=== PATIENT | male | born 1950 | race Caucasian/White ===

== ENCOUNTER 2021-11-26 11:37 | Emergency (ER) | payer MEDICARE, OTHER, SELFPAY ==
[2021-11-26 12:01] VITALS: BP 158/71; PULSE 68; RESP 18; TEMP 36.8; O2SAT 97
--- NOTE | 2021-11-26 12:45 | ED.GENADUL_ITS ---
Discharge Plan Disposition Patient Disposition: HOME Condition: Stable Discharge Details Clinical Impression: Viral URI with cough Primary Care Provider: Maye,Local ED Provider: Millie Jones Home Meds and New Rx's Prescriptions: Continued lamotrigine [Lamictal] 200 mg Tablet 200 mg PO DAILY diltiazem HCl 240 mg Capsule,Extended Release 24 Hr 240 mg PO DAILY losartan 25 mg Tablet 25 mg PO DAILY hydrochlorothiazide 12.5 mg Capsule 12.5 mg PO DAILY gabapentin 300 mg Capsule 300 mg PO DAILY furosemide 20 mg Tablet 20 mg PO DAILY escitalopram oxalate [Lexapro] 10 mg Tablet 20 mg PO DAILY quetiapine [Seroquel] 50 mg Tablet 50 mg PO DAILY Xarelto 20 mg Tablet 20 mg PO DAILY Discharge Instructions Instructions: Upper Respiratory Infection (ED), Acute Cough (ED), COVID-19 (Coronavirus Disease 2019) (ED) Additional Instructions: Your symptoms are likely due to COVID-19 as you had a recent positive exposure. You were given a monoclonal antibody infusion here in the emergency department due to the likelihood that you have COVID-19 and to reduce your risk of progression to severe illness associated with COVID-19 in association with your other chronic medical problems. Drink plenty of fluids and get plenty of rest. You can try [id number] Coricidin HBP for your cough which may be more safe in patients with high blood pressure. You have been placed on care management's list to arrange for a follow-up appointment with a primary care doctor to establish care and for re-evaluation. Return immediately to the emergency department if you develop any worsening or new concerning symptoms such as persistent fevers, difficulty breathing or any other concerns. Stand Alone Forms: PENDING COVID-19 TESTING Discharge Data Discharge Date/Time-TO BE ENTERED AT DEPARTURE: 11/26/21 16:21 Discharge Physician: Millie Jones Medical Decision Making 71-year-old male with a history of atrial fibrillation on Xarelto, hypertension, bipolar disorder presents with 4 days of headache, nasal congestion, cough and fatigue that he reports is now improving. Patient is here with his who is also a patient. He states they drove here from [place] 4 days ago and have moved here. He states his symptoms are improving and he is mainly worried about his health and at this time. He has received a total of 4 COVID vaccines. He denies any known exposure to COVID. He appears comfortable and nontoxic. He is afebrile. His oxygen saturation is 99% on room air on my assessment. He has wheezing in the right lung base and offered a chest x-ray but patient declined. He appears to be breathing comfortably and denies any shortness of breath. Otherwise normal ENT exam. No meningeal signs. A send out COVID test was obtained. Patient states he does not want any imaging or additional testing and does not want antiviral medication. Patient placed on care management list to arrange for a follow-up appointment with the primary care doctor to establish care for reevaluation. Usual and customary return precautions given prior to discharge. Shortly after discharge, patient's who is also a patient in the emergency department tested positive for COVID on a rapid test. This was discussed with patient with his consent and patient would like antiviral medication as he likely has Covid. Per discussion with pharmacy, due to his medication interactions, Paxlovid would not be appropriate but they are recommending monoclonal antibody infusion which patient is agreeable to and tolerated well. Medical Records Medical records reviewed: Yes I reviewed the patient's medical records. HPI General Mode of arrival: ambulatory . Date/Time Provider Initiated Documentation: 11/26/21 12:05 . Limitations to Documentation: no limitations . Information obtained by: patient . HPI Narrative: Patient is a 71-year-old male with a history of atrial fibrillation on Xarelto, hypertension and bipolar disorder who presents with 4 days of nasal congestion, runny nose, cough, headache and fatigue. Patient states he has received a total of 4 doses of the COVID-vaccine. He states he started traveling here 4 days ago from [place] and is moving here permanently. He is unaware of any known exposure to coronavirus but has been traveling. He denies any known fever, chest pain, sore throat, shortness of breath, vomiting or diarrhea. Related Data Home Medications Medication Instructions Recorded Confirmed diltiazem HCl 240 mg capsule,24 240 mg PO DAILY 11/26/21 11/26/21 hr,extended release escitalopram oxalate 10 mg tablet 20 mg PO DAILY 11/26/21 11/26/21 (Lexapro) furosemide 20 mg tablet 20 mg PO DAILY 11/26/21 11/26/21 gabapentin 300 mg capsule 300 mg PO DAILY 11/26/21 11/26/21 hydrochlorothiazide 12.5 mg capsule 12.5 mg PO DAILY 11/26/21 11/26/21 lamotrigine 200 mg tablet 200 mg PO DAILY 11/26/21 11/26/21 (Lamictal) losartan 25 mg tablet 25 mg PO DAILY 11/26/21 11/26/21 quetiapine 50 mg tablet (Seroquel) 50 mg PO DAILY 11/26/21 11/26/21 rivaroxaban 20 mg tablet (Xarelto) 20 mg PO DAILY 11/26/21 11/26/21 Allergies Allergy/AdvReac Type Severity Reaction Status Date / Time No Known Allergies Allergy Unverified 11/26/21 12:04 General Stated Complaint: RespSymp ISAAC: 4 Review of Systems All systems reviewed & are unremarkable except as noted in HPI and below Constitutional Constitutional: Denies chills, Denies excessive sweating, Denies fatigue, Denies fever(s), Denies weakness and Denies weight loss Eyes Eyes: Reports system reviewed and no additional complaints, except as documented and Denies blurry vision ENT Ears, Nose, Mouth, and Throat: Denies vertigo, Denies dizziness, Denies otalgia, Denies nasal congestion, Denies sore throat and Denies throat swelling Cardiovascular Cardiovascular: Denies chest pain, Denies syncope, Denies rapid heart rate and Denies dyspnea Respiratory Respiratory: Denies chest congestion, Denies cough, Denies pain on inspiration and Denies dyspnea Gastrointestinal Gastrointestinal: Denies abdominal pain, Denies diarrhea and Denies vomiting Genitourinary Genitourinary: Denies hematuria, Denies dysuria and Denies flank pain Musculoskeletal Musculoskeletal: Denies back pain and Denies joint swelling Integumentary/Breasts Skin/Breast: Denies lesions and Denies rash Neurologic Neurologic: Denies behavioral changes, Denies confusion, Denies vertigo, Denies dizziness, Denies syncope, Denies localized weakness and Denies weakness Psychiatric Psychiatric: Denies behavioral changes, Denies confusion and Denies depression Endocrine Endocrine: Denies excessive sweating and Denies fatigue Hematologic/Lymphatic Hematologic/Lymphatic: Denies easy bruising and Denies lymphadenopathy Allergic/Immunologic Allergic/Immunologic: Denies throat swelling PFSH All Active Problems (Updated 11/26/21 @ 12:48 by Millie Jones DO) Viral URI with cough (Acute) Medical History (Updated 11/26/21 @ 12:48 by Millie Jones DO) Atrial fibrillation Bipolar affective disorder HTN (hypertension) Surgical History (Updated 11/26/21 @ 12:47 by Millie Jones DO) History of cervical spinal surgery History of knee replacement History of lumbar surgery Social History Smoking/Tobacco Use Status: Never Smoking risk assessment performed?: Yes Alcohol Intake: current Alcohol Intake frequency: holidays/special occasions only Drug use: Never Substance use type: does not use Do you feel safe at home: Yes Do you feel safe in your relationship?: Yes Exam Const General: cooperative Orientation: alert, awake and oriented x3 HENMT Head: normal to inspection Ears: hearing grossly normal bilaterally, external ears normal and TM's normal bilaterally General nose exam: external nose normal Face and sinus: normal facial exam Mouth: oral mucosae normal Teeth and gingiva: dentition normal Throat: posterior oropharynx normal Eyes General: appearance normal, both eyes and all related structures Eyelids: eyelids normal Pupils: PERRL EOM: EOM intact bilaterally Neck Neck: normal visual inspection Lymphatic: no lymphadenopathy noted Chest Chest: normal inspection of the chest Resp Effort & Inspection: normal respiratory effort and able to speak in complete sentences Auscultation: clear to auscultation bilaterally Cardio Rate: regular rate Rhythm: regular rhythm GI Inspection: normal to inspection Palpation: soft, not firm, no guarding, no hepatosplenomegaly, no masses and n ontender Auscultation: normal bowel sounds Back/Spine/Pelvis Back: no CVA tenderness Skin General skin exam: no rashes or lesions noted Neuro General: patient alert and patient awake Cognition: normal cognition Speech: speech normal Gait: normal gait Motor: muscle tone normal throughout Sensory Exam: no sensory deficits noted Extrem General: normal to inspection, full ROM and capillary refill normal Psych Appearance: grossly normal Mental Status: mental status grossly normal Speech and Movement: speech and movement normal Affect: normal affect Thought Process: normal Course Vital Signs Vital signs: Vital Signs Temperature 98.2 F 11/26/21 12:01 Pulse 68 11/26/21 12:01 Respiratory Rate 18 11/26/21 12:01 Blood Pressure 158/71 H 11/26/21 12:01 Pulse Oximetry 97 11/26/21 12:01 Temperature 98.2 F 11/26/21 12:01 Temperature Source Temporal Artery Scan 11/26/21 12:01 Pulse 68 11/26/21 12:01 Respiratory Rate 18 11/26/21 12:01 Respiratory Effort Non-Labored 11/26/21 12:11 Blood Pressure 158/71 H 11/26/21 12:01 Blood Pressure Position Sitting 11/26/21 12:01 Pulse Oximetry 97 11/26/21 12:01 Oxygen Delivery Method Room Air 11/26/21 12:01 Oxygen Flow Rate 0 11/26/21 12:01
--- NOTE | 2021-11-26 12:57 | NUR.NOTE ---
Nursing Note: PT INFO GIVEN TO CARE MANAGEMENT TO ESTABLISH CARE NEXT WEEK. REGAN, ED
[2021-11-26 15:10] VITALS: BP 156/67; PULSE 53; RESP 16; TEMP 36.7; O2SAT 98
[2021-11-26] MEDS: Normal Saline Flush 10 ML SYR IVP (15:11)
[2021-11-26 16:21] VITALS: BP 156/67; PULSE 53; RESP 16; TEMP 36.7; O2SAT 98
--- NOTE | 2021-11-27 10:36 | PDOC.ERCMACT ---
- If Service Date Differs Date of service: 11/27/21 Time of Service: 10:36 Care Management Activity Note Lamont is seen in the ED for a viral URI with cough. At the request of ED provider, TELLY coordinates a referral to SKY Osei, of [facility], on-call provider, to assist Lamont in obtaining a follow up appointment and in establishing care with a local PCP. Lamont has Medicare for health insurance.
[2021-11-27 16:53] LABS: COVID-19 RT-PCR UVMMC Result Positive (Negative)
== END 2021-11-26 16:21 | disposition home or self-care (01) ==
PROVIDERS: Emergency Provider Physician Assistant
DX: U07.1 COVID-19 (principal)
CPT/HCPCS: 80048; 96374; 99283; 99284; Q0222; U0003

== ENCOUNTER 2022-02-26 18:06 | Outpatient (REF) | payer MEDICARE, OTHER, SELFPAY ==
[2022-02-26 16:53] LABS: Calculated LDL 125 mg/dL (<100); Cholesterol 179 mg/dL (<200); HDL Cholesterol 39 mg/dL (40-60); Triglyceride 76 mg/dL (<150)
== END 2022-02-26 18:07 | disposition home or self-care (01) ==
LOC: NCHCN 18:06
PROVIDERS: Visit Provider Nurse Practitioner Family
DX: E78.5 Hyperlipidemia, unspecified (principal)
CPT/HCPCS: 80061

== ENCOUNTER 2022-03-29 08:49 | Outpatient (CLI) | payer MEDICARE, OTHER, SELFPAY ==
--- NOTE | 2022-03-29 08:45 | RT.EKG_ITS ---
APPROVED REPORT Exam: Resting ECG Reason for Exam: fib Patient Location: O HR:55 bpm ECG Measurements Heart Rate 55 AXIS AK 241 P 0 QRSd 115 QRS -33 QT 463 T 8 QTc 443 Conclusion Sinus rhythm...normal P axis, V-rate 50- 99 Prolonged AK interval...AK >220, V-rate 50- 90
== END 2022-03-29 08:50 | disposition home or self-care (01) ==
LOC: DI.CARD 08:50
PROVIDERS: Visit Provider Internal Medicine Cardiovascular Disease
DX: I48.91 Unspecified atrial fibrillation (principal)
CPT/HCPCS: 93010

== ENCOUNTER → 2022-03-29 11:06 | Outpatient (BNVA) | payer MEDICARE, BC, OTHER, SELFPAY | PROVIDERS: Visit Provider Internal Medicine Cardiovascular Disease | DX: I48.0 Paroxysmal atrial fibrillation (principal); E78.5 Hyperlipidemia, unspecified; I10 Essential (primary) hypertension | CPT/HCPCS: 93005; 99203; 99214 ==

== ENCOUNTER 2022-08-02 01:19 | Outpatient (CLI) | payer MEDICARE, OTHER, SELFPAY ==
--- NOTE | 2022-08-02 09:00 | ETT_ITS ---
APPROVED REPORT Exam: Exercise Treadmill Patient Location: Out-Patient Room/Bed: Stress Nurse: Ileana Bartlett RN Ordering Provider:RANDI CHRISTINE, Contact Number: [phone] BMI: 33.96 Baseline Rhythm: Sinus Rhythm Comment: first degree, SR Indications: afib, evaluation for ischemia and QRS prolongation Medical History Medical History: afib, bipolar affective disorder, HTN, hx cervical surgery, hx knee replacement, hx lumbar surgery, hx cataract surgery Cardiac Medications: lexapro, flecainide, diltiazem HCL, rosuvastatin, furosemide, losartan, hydrochl orathiazide, xerelto, seroquel, lamictal Allergies: NKA Cardiac Risk Factors: HTN, HLD, overweight Previous Cardiac Procedures: cardioversion x4 (2 in 2016, 2 in 2018) Pretest Chest Pain Characteristics: none Exercise History: Physically active Physical Disabilities: none Lung Sounds: Clear to auscultation Heart Sounds: + murmur Stress Test Details Test: Exercise stress testing was performed using a Bennie protocol. Rest Stress HR Resting HR Supine: 55 bpm Max Heart Rate (APMHR): 150 bpm Resting HR Standin bpm Target HR (85% APMHR): 128 bpm Max HR Achieved: 107 bpm % of APMHR: 71 Recovery HR: 68 bpm HR response to stress: Blunted HR response to stress BP Resting BP Supine: 146/68 mmHg Resting BP Standin/66 mmHg Max BP: 200/88 mmHg Recovery BP: 150/60 mmHg BP response to stress: Normal blood pressure response to stress. ECG Resting ECG: Sinus Rhythm Ectopy: None Stress ECG: Sinus Tachycardia ST Change: None Recovery ECG: Sinus Rhythm Recovery ST Change: None Recovery Arrhythmia: rare PVC Comment: T wave inversion in aVL and V2 Clinical Reason for Termination: Fatigue Stress Symptoms: None Exercise duration: 9 min09 sec Highest Stage Reached: Stage 4: 4.2 mph at 16% grade. Exercise capacity: 10.39 METs Angina Score: None Thornton Treadmill Score: 8.2 Rate Pressure Product: 09603 Stress ECG Conclusion 1. Resting electrocardiogram showed first-degree AV block and poor R wave progression 2. Patient exercised on the Bennie protocol completed a workload of 10.39 METS 3. Limited heart rate response to exercise. The patient achieved 71% of predicted heart rate for age 5. At that workload and heart rate there was no electrocardiographic evidence of myocardial ischemia though the test was deemed nondiagnostic as 85% of predicted heart rate was not achieved 5. Rare PVCs were seen Thornton Treadmill Score is 8.2 which is Low risk. Stress Test Summary STAGE Time (mins) Speed (mph) Grade (%) HR BP SpO2 SYMPTOMS METS Supine 55 146/68 Standing 59 154/66 1 3 1.7 10 89 160/82 4.5 2 6 2.5 12 91 170/84 7 3 9 3.4 14 105 10 1 min recovery 97 200/88 3 min recovery 78 178/68 6 min recovery 68 150/60
== END 2022-08-02 01:39 ==
PROVIDERS: Visit Provider Internal Medicine Cardiovascular Disease
DX: I48.91 Unspecified atrial fibrillation (principal)
CPT/HCPCS: 93016; 93018; 93017

== ENCOUNTER 2022-08-27 17:36 | Outpatient (REF) | payer MEDICARE, OTHER, SELFPAY ==
[2022-08-27 14:46] LABS: HCT 43.6 % (40.0-50.0); HGB 14.3 g/dL (13.5-17.5); MCH 29.5 pg (27.0-33.0); MCHC 32.8 % (32.0-36.0); MCV 90 fL (80-95); MPV 10.6 fL (8.0-11.0); Platelet Count 210 10^3/uL (130-400); RBC 4.85 10^6/uL (4.36-5.78); RDW-SD 42.8 fL; WBC 6.86 10^3/uL (4.4-10.8)
[2022-08-27 15:18] LABS: ALT 41 U/L (16-63); AST 29 U/L (15-37); Albumin 4.1 g/dL (3.4-5.0); Alkaline Phosphatase 88 U/L (46-116); Anion Gap 8.8 mmol/L (3-11); BUN 25 mg/dL (7-18); Bilirubin, Total 0.4 mg/dL (0.2-1.0); CO2 27.2 mmol/L (21.0-32.0); Calcium 8.9 mg/dL (8.5-10.1); Calculated LDL 61 mg/dL (<100); Chloride 104 mmol/L (98-107); Cholesterol 118 mg/dL (<200); Estimated GFR 80.97 (mL/min/1.73m2); Glucose 100 mg/dL (74-106); HDL Cholesterol 41 mg/dL (40-60); Potassium 4.1 mmol/L (3.5-5.1); Sodium 140 mmol/L (136-145); Total Protein 7.6 g/dL (6.4-8.2); Triglyceride 83 mg/dL (<150)
[2022-08-29 13:22] LABS: PSA, Screening 0.4 ng/mL (<=6.5)
== END 2022-08-27 17:37 | disposition home or self-care (01) ==
LOC: LBN 17:36
PROVIDERS: Visit Provider Nurse Practitioner Family
DX: I10 Essential (primary) hypertension (principal); E78.5 Hyperlipidemia, unspecified; I48.91 Unspecified atrial fibrillation; Z12.5 Encounter for screening for malignant neoplasm of prostate
CPT/HCPCS: 80053; 80061; 84153; 85027

== ENCOUNTER 2022-09-24 00:28 | Outpatient (CLI) | payer MEDICARE, BC, OTHER, SELFPAY ==
--- NOTE | 2022-09-24 08:52 | DI.RAD_ITS ---
Exam(s) XR SHOULDER RT COMPLETE 2+V EXAM: XR SHOULDER RT COMPLETE 2+V CLINICAL HISTORY: RT ARM PAIN, M79.601. TECHNIQUE: 2D digital imaging was performed. COMPARISON: No exams were available for comparison FINDINGS: Five views: No evidence of acute fracture nor dislocation nor soft. Subacromial space is not diminished. There are no obvious degenerative changes glenohumeral joint. Mild degenerative changes in the AC joint. Ipsilateral clavicle unremarkable. Bone density normal. No osseous lesions. IMPRESSION: No significant osseous findings in the shoulder. DATA REPOSITORY: RADIATION DOSE DELIVERED:
== END 2022-09-24 00:48 ==
PROVIDERS: PCP Nurse Practitioner Family; Visit Provider Nurse Practitioner Family
DX: M79.601 Pain in right arm (principal)
CPT/HCPCS: 73030

== ENCOUNTER → 2023-03-24 14:39 | Outpatient (BNVA) | payer MEDICARE, OTHER, SELFPAY | PROVIDERS: PCP Nurse Practitioner Family; Referring Provider Nurse Practitioner Family; Visit Provider Physical Therapy Assistant | DX: Z12.11 Encounter for screening for malignant neoplasm of colon (principal) ==

== ENCOUNTER 2023-04-04 07:31 | Day surgery (SDC) | payer MEDICARE, BC, OTHER, SELFPAY ==
--- NOTE | 2023-04-03 16:31 | W.PM.DSUDISC ---
Date of service: 04/04/23 Time of Service: 11:00 Discharge Plan Disposition Patient Disposition: Home Condition: Good Discharge Details Reason For Visit: screening colonoscopy Attending Provider: Alex Hernandes Primary Care Provider: Elda Landeros Home Meds and New Rx's Prescriptions: Continued losartan 100 mg tablet 100 mg PO DAILY rosuvastatin 10 mg tablet 10 mg PO DAILY Qty: 90 3RF flecainide 100 mg tablet 100 mg PO BID lamotrigine [Lamictal] 200 mg Tablet 200 mg PO DAILY diltiazem HCl 240 mg Capsule,Extended Release 24 Hr 240 mg PO DAILY Xarelto 20 mg Tablet 20 mg PO DAILY hydrochlorothiazide 12.5 mg capsule 25 mg PO DAILY escitalopram oxalate [Lexapro] 10 mg tablet 10 mg PO DAILY quetiapine [Seroquel] 50 mg tablet 25 mg PO DAILY Discontinued bisacodyl [Dulcolax (bisacodyl)] 5 mg tablet,delayed release (DR/EC) 5 mg PO ONCE Qty: 4 0RF Rx Instructions: Take per colonoscopy instructions provided by ordering providers office polyethylene glycol 3350 17 gram/dose powder 17 g PO ONCE Qty: 238 0RF Rx Instructions: Take per colonoscopy instructions provided by ordering providers office Discharge Instructions Instructions: Diverticulosis (GEN), Diverticulosis Diet (GEN) Additional Instructions: Lamont, we were able to complete your colonoscopy today without any difficulty. I did not see any signs of tumors or polyps. Incidentally, you do have some diverticulosis. Diverticula are weak spots in the colon wall that typically accumulate as we get older. I have attached some general information here regarding typical treatments of diverticulosis. However, my general advice to patients is to maintain a balanced diet that is rich in dietary fiber, stay well-hydrated, and avoid symptoms of constipation. He also have some internal hemorrhoids. The advice for diverticulosis will serve hemorrhoids as well. If you have any questions at all, please do not hesitate to contact us at any point. Otherwise, you will need another colonoscopy in 10 years. 1. If tolerated, consume a soft, low fiber diet for 1-2 days. [address] Do not drive, drink alcohol, operate machinery, make critical decisions, or do activities that require coordination or balance for 24 hours. 3. Because air was put into your colon during the procedure, expelling air from your rectum (passing gas or farting) is normal. 4. You may not have a bowel movement for 1-3 days because of the colonoscopy prep. This is normal. 5. Go directly to the emergency room if you notice any of the following: Develop chills (warm to touch), or if you have a thermometer and your temperature is above 101 Difficulty breathing or difficultly swallowing Persistent vomiting Severe abdominal pain, other than gas cramps Severe chest pain Black, tarry stools Any bleeding ? exceeding one tablespoon 6. Call your physician if the site where your intravenous was started becomes red, swollen, painful, and warm to touch. 7. Your physician has reviewed your pre-procedure medications. Please continue to take those medications as previously ordered. You will be given specific information/education regarding any changes to your medications before leaving. Stand Alone Forms: Anesthesia Discharge InstHumphrey Pal (DSU) Activity:: Activity as Tolerated Diet:: As Tolerated Discharge Orders Discharge Orders: Discharge Order (Routine); Ordered 04/03/23 Ordered By: Alex Hernandes DS: Diagnosis Discharge Diagnosis (1) Screen for colon cancer: Status: Acute Asessment and Plan: Diverticulosis, otherwise negative screening colonoscopy
--- NOTE | 2023-04-03 16:33 | COLE_ITS ---
Date of service: 04/04/23 Time of Service: 11:02 Colonoscopy Report Date of procedure: 04/04/23 Pre-op diagnosis general: Screening colonoscopy Post-op diagnosis procedure note: other (Diverticulosis) Procedure: Colonoscopy Surgeon: Alex Hernandes Anesthesia Type: General:No Airway Estimated blood loss (mL): 0 Pathology: none sent Complications: None Disposition: same day Indications: Lamont is a 72 year old man who needs a screening colonoscopy Prep: Miralax/Dulcolax Procedure Start Time: 10:30 Procedure End Time: 10:47 Retraction Time: 11 Findings: Sigmoid diverticulosis Procedure Description: After the induction of monitored anesthetic care, and with the patient in left lateral decubitus position, I began by performing an external anorectal exam.? Perineum and skin were normal, as was the anal verge.? There was no evidence of external hemorrhoids.? Next, I performed a digital rectal exam.? I did not appreciate any abnormal findings.? Next, I advanced a colonoscope into the rectal vault.? I performed retroflexion.? There are grade 1 internal hemorrhoids.? Using insufflation, I then advanced the colonoscope beyond the rectal folds and into the sigmoid colon before advancing towards the cecum.? There was sigmoid diverticulosis.? The scope was noted to be in the cecum by identification of the ileocecal valve and appendiceal orifice.? I then began withdrawing the colonoscope using repeated irrigation as necessary for full evaluation of the colonic mucosa. ?Once the scope was withdrawn to the level of the rectum, great care was taken to examine portions of the rectal folds.? I did not see any signs of tumors or polyps anywhere along the length of the colon. Finally, the scope was withdrawn and the patient was brought to the same-day surgery recovery unit as the anesthetic wore off. ?The findings and instructions were shared with the patient prior to discharge. [place] Bowel Prep [place] Bowel Prep Right Colon: 3 Left Colon: 3 Transverse Colon: 3 Total Score: 9
[2023-04-04 07:54] VITALS: BP 168/76; PULSE 70; RESP 16; TEMP 36; O2SAT 96
[2023-04-04] MEDS: Lactated Ringers 1,000 ML 80 ML IV (08:05)
--- NOTE | 2023-04-04 08:34 | W.ANESPRE ---
General Info Date of Service Date Performed: 04/04/23 Height: 5 ft 9 in Weight: 106.14 kg Body Mass Index (BMI): 34.5 Surgical Procedure: Operation Date: 04/04/23 09:05 Proposed Procedure Side Surgeon mary Hernandes MD Meds Allergies and Home Medications Allergies Allergy/AdvReac Type Severity Reaction Status Date / Time No Known Allergies Allergy Verified 04/04/23 07:51 Home Medication Medication Instructions Recorded diltiazem HCl 240 mg capsule,24 240 mg PO DAILY 11/26/21 hr,extended release lamotrigine 200 mg tablet 200 mg PO DAILY 11/26/21 (Lamictal) rivaroxaban 20 mg tablet (Xarelto) 20 mg PO DAILY 11/26/21 hydrochlorothiazide 12.5 mg capsule 25 mg PO DAILY 03/29/22 losartan 100 mg tablet 100 mg PO DAILY 03/29/22 rosuvastatin 10 mg tablet 10 mg PO DAILY #90 tabs 03/29/22 escitalopram oxalate 10 mg tablet 10 mg PO DAILY 03/24/23 (Lexapro) flecainide 100 mg tablet 100 mg PO BID 03/24/23 quetiapine 50 mg tablet (Seroquel) 25 mg PO DAILY 03/24/23 Current Visit Medications: Current Medications Generic Name Dose Route Start Last Admin Trade Name Freq PRN Reason Stop Dose Admin Hyoscyamine Sulfate 0.125 mg 04/03/23 16:35 Hyoscyamine 0.125 Mg Sl/Oral/Chew SL 05/03/23 16:34 DIRECTED PRN Ringer's Solution 1,000 mls @ 80 mls/hr 04/04/23 06:00 04/04/23 08:05 IV 04/04/23 23:59 80 mls/hr INFUSION LEISA Administration IV Miscellaneous Supplies 1 each 04/04/23 06:00 Iv Access IV 04/04/23 23:59 DIRECTED LEISA Ondansetron HCl 4 mg 04/03/23 16:35 Ondansetron 4 Mg/2 Ml Vial IVP 05/03/23 16:34 Q4H PRN PRN Nausea / Vomiting Sodium Chloride 0 ml 04/04/23 06:00 Normal Saline Flush 10 Ml Syr IV 04/04/23 23:59 PRN PRN Sodium Chloride 0 ml 04/04/23 06:00 Normal Saline 10 Ml Vial IJ 04/04/23 23:59 DIRECTED PRN Sterile Water 0 ml 04/04/23 06:00 Water,Injection,Sterile 10 Ml Vial IJ 04/04/23 23:59 DIRECTED PRN PFSH Active Problems Active Problems: Problem Status Onset Code Screen for colon cancer Z12.11 Hyperlipidemia E78.5 Medical History Medical History Bipolar affective disorder HTN (hypertension) Atrial fibrillation Surgical History Surgical History Hx of cataract surgery History of cervical spinal surgery History of lumbar surgery History of knee replacement bilat Tobacco Smoking/Tobacco Use Status: Never Alcohol Alcohol Intake: current Alcohol intake frequency: holidays/special occasions only Substance Use Substance use: Never Substance use type: does not use Vital Signs and Lab Results Vital Signs Most Recent Vital Signs in EMR: Most Recent Vital Signs Temp Pulse Resp BP Pulse Ox 36.0 C L 70 16 168/76 H 96 04/04/23 07:54 04/04/23 07:54 04/04/23 07:54 04/04/23 07:54 04/04/23 07:54 Lab Results Blood Type / Crossmatch: No Data to Display Complete Blood Count: No Data to Display Complete Metabolic Panel: No Data to Display Liver Function Panel: No Data to Display Coagulation Panel: No Data to Display Cardiac Panel: No Data to Display Arterial Blood Gas: No Data to Display Venous Blood Gas: No Data to Display Pancreas Panel: No Data to Display Thyroid Panel: No Data to Display Infectious Disease: No Data to Display Blood Cultures: No Data to Display Toxicology Panel: No Data to Display Imaging and Studies Imaging and Studies Study information below may be from another EMR and interpreted by another provider. Please see original notes in EMR for more complete details. EKG Summary: DATE/TIME OF SERVICE: 03/29/221117 : 1950 PERFORMING LOCATION: .CARD APPROVED REPORT Exam: Resting ECG Reason for Exam: fib Patient Location: O HR:55 bpm ECG Measurements Heart Rate 55 AXIS MO 241 P 0 QRSd 115 QRS -33 QT 463 T8 QTc 443 Conclusion Sinus rhythm...normal P axis, V-rate 50- 99 Prolonged MO interval...MO >220, V-rate 50- 90 Stress Test Summary: 08/02/2022: Stress ECG Conclusion 1. Resting electrocardiogram showed first-degree AV block and poor R wave progression 2. Patient exercised on the Bennie protocol completed a workload of 10.39 METS 3. Limited heart rate response to exercise. The patient achieved 71% of predicted heart rate for age 5. At that workload and heart rate there was no electrocardiographic evidence of myocardial ischemia though the test was deemed nondiagnostic as 85% of predicted heart rate was not achieved 5. Rare PVCs were seen Thornton Treadmill Score is 8.2 which is Low risk. Anesthesia Assessment and Plan Anesthesia History Personal History: No History of Anesthesia Complications Family History: No Family History of Anesthesia Complications Exercise Tolerance Exercise Tolerance: Metabolic Equivalents>4 Pertinent Negatives Pertinent Negatives: No Symptoms of GERD (once or twice a month), No Major Cardiovascular Symptoms or Complaints, No Major Pulmonary Symptoms or Complaints and No History of CVA/TIA Cardiac & Pulmonary Exam Cardiac Exam: Normal S1/S2 Heart Sounds Pulmonary Exam: Clear Bilateral Breath Sounds Implantable Cardiac Device Does patient have a Pacemaker or an ICD?: No Airway Exam Known Difficult Airway: No Mallampati Class: 3 Mouth Opening: Normal (> 3cm) Thyromental Distance: Greater than 3 cm Neck Range of Motion: Limited ROM Neck Circumference: Normal Teeth Condition: Normal Dentition ASA Classification ASA Score: ASA 2 Emergency Case?: No NPO Status NPO Status: NPO Clears >2 hours, Solids >8 hours Anesthesia Plan Resuscitation Status: Full Code Anesthesia Technique: General Anesthesia Airway Planned: Natural Airway Monitors Used: Standard Monitors
[2023-04-04 09:15] VITALS: BMI 34.5
[2023-04-04 10:57] VITALS: BP 164/74; PULSE 69; RESP 18; TEMP 36.7; O2SAT 97
--- NOTE | 2023-04-04 11:15 | W.ANESPOSTOP ---
Postoperative Evaluation Date, Time and Location Date Performed: 04/04/23 Time Performed: 11:16 Patient Location: Day Surgery Unit Vital Signs Most Recent Imported Vital Signs: Most Recent Vital Signs Temp Pulse Resp BP Pulse Ox 36.7 C 69 18 164/74 H 97 04/04/23 10:57 04/04/23 10:57 04/04/23 10:57 04/04/23 10:57 04/04/23 10:57 Pain Score Most Recent Pain Score: Most Recent Pain Score Pain Level 0 04/04/23 10:57 Assessment Mental Status: Awake (Alert & Oriented to Patient Baseline) Airway and Respiratory Function: Patent airway with normal (patient baseline) respiratory exam Cardiovascular Function: Hemodynamically Stable Hydration Status: Adequately Hydrated Nausea & Vomiting: No Nausea or Vomiting Pain: Pt. Denies Any Pain Peripheral Nerve Block: Patient did not receive a nerve block
[2023-04-04 11:35] VITALS: BP 138/57; PULSE 64; RESP 16; TEMP 36.4; O2SAT 97
== END 2023-04-04 12:18 | disposition home or self-care (01) ==
PROVIDERS: PCP Nurse Practitioner Family; Visit Provider Surgery
PROC: 0DJD8ZZ Inspection of Lower Intestinal Tract, Via Natural or Artificial Opening Endoscopic (ICD-10-PCS; CPT 45378; principal; 2023-04-04 09:00)
DX: Z12.11 Encounter for screening for malignant neoplasm of colon (principal); K57.30 Diverticulosis of large intestine without perforation or abscess without bleeding; K64.0 First degree hemorrhoids
CPT/HCPCS: G0121; J0360

== ENCOUNTER 2023-09-16 16:17 | Outpatient (REF) | payer MEDICARE, OTHER, SELFPAY ==
[2023-09-16 19:10] LABS: Abs Immature Grans 0.03 10^3/uL (0.0-0.06); Absolute Basophil Count 0.04 10^3/uL (0.0-0.2); Absolute Eosinophil Count 0.16 10^3/uL (0.0-0.7); Absolute Lymphocyte Count 1.82 10^3/uL (1.2-3.4); Absolute Neutrophil Count 5.12 10^3/uL (1.2-6.7); Basophils % 0.5; Eosinophils % 2.1; HCT 44.1 % (40.0-50.0); HGB 14.8 g/dL (13.5-17.5); Immature Grans % 0.4; Lymphocytes % 23.4; MCH 30.3 pg (27.0-33.0); MCHC 33.6 % (32.0-36.0); MCV 90 fL (80-95); MPV 10.5 fL (8.0-11.0); Monocytes % 7.7; Neutrophils % 65.9; Platelet Count 188 10^3/uL (130-400); RBC 4.88 10^6/uL (4.36-5.78); RDW 12.9 % (11.8-14.1); RDW-SD 42.5 fL; WBC 7.77 10^3/uL (4.4-10.8)
[2023-09-16 19:31] LABS: ALT 52 U/L (16-63); AST 29 U/L (15-37); Albumin 4.2 g/dL (3.4-5.0); Alkaline Phosphatase 94 U/L (46-116); Anion Gap 10.9 mmol/L (3-11); BUN 21 mg/dL (7-18); Bilirubin, Total 0.4 mg/dL (0.2-1.0); CO2 28.1 mmol/L (21.0-32.0); CREATININE 0.8 mg/dL (0.70-1.30); Chloride 102 mmol/L (98-107); Estimated GFR 94.03 (mL/min/1.73m2); Glucose 105 mg/dL (74-106); Sodium 141 mmol/L (136-145); Total Protein 7.3 g/dL (6.4-8.2)
[2023-09-19 08:48] LABS: PSA, Screening 0.7 ng/mL (<=6.5)
== END 2023-09-16 16:18 | disposition home or self-care (01) ==
LOC: NCHCN 16:17
PROVIDERS: PCP Nurse Practitioner Family; Visit Provider Nurse Practitioner Family
DX: Z00.00 Encounter for general adult medical examination without abnormal findings (principal)
CPT/HCPCS: 80053; 84153; 84443; 85025

== ENCOUNTER 2024-09-24 15:10 | Outpatient (REF) | payer MEDICARE, OTHER, SELFPAY ==
[2024-09-24 17:26] LABS: ALT 36 U/L (16-63); AST 23 U/L (15-37); Alkaline Phosphatase 90 U/L (46-116); Anion Gap 7.9 mmol/L (3-11); BUN 18 mg/dL (7-18); Bilirubin, Total 0.6 mg/dL (0.2-1.0); CO2 29.1 mmol/L (21.0-32.0); CREATININE 0.9 mg/dL (0.70-1.30); Calcium 8.5 mg/dL (8.5-10.1); Chloride 104 mmol/L (98-107); Estimated GFR 90.18 (mL/min/1.73m2); Glucose 128 mg/dL (74-106); Magnesium 2.1 mg/dL (1.8-2.4); Potassium 4.1 mmol/L (3.5-5.1); Sodium 141 mmol/L (136-145); Total Protein 6.7 g/dL (6.4-8.2); Vitamin B12 258 pg/mL (193-986)
== END 2024-09-24 15:11 | disposition home or self-care (01) ==
LOC: NCHCN 15:10
PROVIDERS: PCP Nurse Practitioner Family; Visit Provider Nurse Practitioner Family
DX: E78.5 Hyperlipidemia, unspecified (principal); K21.9 Gastro-esophageal reflux disease without esophagitis
CPT/HCPCS: 80053; 82607; 83735

== ENCOUNTER 2024-10-19 00:21 | Outpatient (CLI) | payer MEDICARE, OTHER, SELFPAY ==
--- NOTE | 2024-10-19 12:30 | DI.US_ITS ---
APPROVED REPORT EXAM: Comprehensive 2D, Doppler, and color-flow Echocardiogram Patient Location: Out-Patient Provisioning Analyst: Nehemias De Leon RDCS (AE) Indications: Afib Other Information Study Quality: Fair. Technically limited study due to body habitus. Conclusion Normal left ventricular wall thickness and chamber size. Ejection fraction is 65%. Wall motion is n ormal Normal right ventricular size and function Mildly dilated left atrium. Normal right atrial size Aortic valve is trileaflet and mildly sclerotic with trace regurgitation Mild mitral annular calcification Estimated right ventricular systolic pressure is 35 mmHg Patient was in sinus rhythm throughout the study Wall motion Left Ventricle Left ventricle is mildly dilated. The left ventricular systolic function is normal. The left ventricu lar ejection fraction is within the normal range. There is normal left ventricular wall thickness. Th ere is normal LV segmental wall motion. There is no ventricular septal defect visualized. LVEF is 65% . Right Ventricle The right ventricle is normal size. The right ventricular systolic function is normal. Atria Left atrium is mildly dilated. The right atrium size is normal. The interatrial septum is intact with no evidence for an atrial septal defect. Aortic Valve The aortic valve is mildly sclerotic. Aortic valve is trileaflet. There is no aortic valvular stenosi s. Trace aortic regurgitation. Mitral Valve Mild mitral annular calcification. No evidence of mitral valve stenosis. There is no mitral valve reg urgitation noted. Tricuspid Valve The tricuspid valve is normal in structure. There is no tricuspid valve stenosis. Trace tricuspid reg urgitation. The RVSP is 35.4 mmHg. Pulmonic Valve The pulmonary valve is normal in structure. There is no pulmonic valvular stenosis. There is no pulmo bacilio valvular regurgitation. Great Vessels The aortic root is normal in size. Ascending aorta is normal in caliber. IVC is normal in size and co llapses >50% with inspiration. Pericardium There is no pericardial effusion. 2D Dimensions IVSD d PLAX 0.97 cm M: 0.6-1.2 Ao Root d 2.93 cm M: 3.1 - 3.7 LVPW d PLAX 0.96 cm M: 0.6 - 1.2 LVID d PLAX 6.59 cm M: 4.2 - 5.8 LVDs 4.17 cm M: 2.5 - 4.0 LV EF Teichholz 65.4 % FS 36.75 % LV EDV (Teich) 222.7 mL LV ESV (Teich) 77.1 mL Stroke Vol Index (Teich) 65.88 M-Mode TAPSE 3.34 cm (M/F) >1.7 Auto EF LV EDV A4C 157.8 mL LV EDV A2C 176.0 mL LV EDV BP 166.8 mL LV ESV A4C 54.6 mL LV ESV A2C 61.8 mL LV ESV BP 58.3 mL LVEF(%) A4C 65.4 % LVEF(%) A2C 64.9 % LVEF(%) BP 65.0 % LV SV A4C 103.2 ml LV SV A2C 114.3 ml LV SV BP 108.5 ml LV CO A4C 5.3 L/min LV CO A2C 5.6 L/min LV CO BP 5.4 L/min HR A4C 50.99 BPM HR A2C 48.72 BPM LV EDV Index (BP) LA Volume LA Length A4C 5.4 cm LA Length A2C 5.3 cm LA Area A4C s 15.05 cm2 LA Area A2C s 16.09 cm2 LA Vol A4C A-L 35.80 mL LA Vol A2C A-L 41.55 mL LA Vol Biplane A-L 38.9 mL LA Vol/BSA A4C A-L LA Vol/BSA A2C A-L LA Vol/BSA BP A-L 17.6 mL/m2 LA Vol A4C MOD 35.0 mL LA Vol A2C MOD 39.1 mL LA Vol BP MOD 37.2 mL RA Volume RA Area A4C 10.5 cm2 RA ESV A4C (A-L) 19.4mL RA Vol/BSA A4C A-L RA Length A4C 4.8 cm RA ESV A4C (MOD) 19.0mL LV Diastology MV E' medial 0.108 (>0.07 m/s) MV E Vmax 1.18 (0.4-1.3 m/s) MV E/E' MED 10.90 (<14) MV A Vmax 1.00 (0.4-1.3 m/s) MV E' lateral 0.126 (>0.1 m/s) E/A Ratio 1.2 MV E/E' LAT 9.36 (<14) MV E' Average 0.117 m/s MV E/E'(average) 10.07 Aortic Valve AoV Vmax 2.18 m/s LVOT Vmax 1.40 m/s AoV Peak Grad 19.1 mmHg LVOT Peak Grad 7.8 mmHg AoV Area (Vmax) 2.39 cm2 LVOT VTI 0.336 m AoV VTI 0.548 m LVOT Mean Grad 4.6 mmHg AoV Mean Justin. 1.51 m/s LVOT SV 125.55 mL AoV Mean Grad 10.6 mmHg LVOT Diam s 2.15 cm AoV Area (VTI) 2.29 cm2 AV Regurg Peak Gr. 19.08 mmHg Velocity Ratio 0.64 Mitral Valve MV DT 297 (160-240 msec) Pulmonary Valve RVOT Vmax 0.92 m/s RVOT Peak Gr. 3.4 mmHg RVOT VTI 0.202 m RVOT Mean Gr. 1.8 mmHg Tricuspid Valve RA Pressure 3.00 mmHg TR Vmax 2.85 m/s TR Peak Grad 32.4 mmHg RVSP (TR) 35.4 mmHg
== END 2024-10-19 00:41 ==
LOC: DI 00:21
PROVIDERS: PCP Nurse Practitioner Family; Visit Provider Internal Medicine Cardiovascular Disease
DX: I48.91 Unspecified atrial fibrillation (principal); I08.0 Rheumatic disorders of both mitral and aortic valves
CPT/HCPCS: 93306

== ENCOUNTER 2025-01-14 15:07 | Outpatient (REF) | payer MEDICARE, OTHER, SELFPAY ==
[2025-01-14 16:06] LABS: Abs Immature Grans 0.02 10^3/uL (0.0-0.06); HCT 42.8 % (40.0-50.0); HGB 14.1 g/dL (13.5-17.5); Immature Grans % 0.3 %; MCH 29.9 pg (27.0-33.0); MCHC 32.9 % (32.0-36.0); MCV 91 fL (80-95); MPV 10.5 fL (8.0-11.0); Platelet Count 173 10^3/uL (130-400); RBC 4.71 10^6/uL (4.36-5.78); RDW 13.1 % (11.8-14.1); RDW-SD 43.7 fL; WBC 7.07 10^3/uL (4.4-10.8)
[2025-01-14 16:31] LABS: TSH (W/Ref FT4) 1.21 uIU/mL (0.36-3.74)
== END 2025-01-14 15:08 | disposition home or self-care (01) ==
LOC: NCHCN 15:07
PROVIDERS: PCP Nurse Practitioner Family; Visit Provider Nurse Practitioner Family
DX: R40.0 Somnolence (principal); R68.82 Decreased libido
CPT/HCPCS: 84403; 84443; 85025